=== PATIENT | male | born 1970 ===

== ENCOUNTER 2018-10-05 17:13 | Emergency (ER) | payer MEDICAID ==
[2018-10-05 17:33] VITALS: BP 163/82; PULSE 85; RESP 16; TEMP 98.3; O2SAT 98
--- NOTE | 2018-10-05 17:47 | C.PDOC ---
History Of Present Illness 48 y/o male presents to the ED complaining of lower back pain radiating to his left leg. Patient reports he was taking vicodin, prescribed by his primary doctor, which he ran out of today. Of note, he is visiting here from [place]. He denies any numbness, extremity weakness, paresthesias, dysuria, fever, or bowel/bladder incontinence. Time Seen by Provider: 10/05/18 17:38 Chief Complaint (Nursing): Back Pain History Per: Patient History/Exam Limitations: no limitations Onset/Duration Of Symptoms: Days Current Symptoms Are (Timing): Still Present Quality Of Discomfort: "Pain" Previous Symptoms: Back Pain Associated Symptoms: None Past Medical History Reviewed: Historical Data, Nursing Documentation, Vital Signs Vital Signs: Last Vital Signs Temp 98.3 F 10/05/18 17:30 Pulse 85 10/05/18 17:30 Resp 16 10/05/18 17:30 BP 163/82 H 10/05/18 17:30 Pulse Ox 98 10/05/18 17:30 Family History: States: Unknown Family Hx - Social History Hx Tobacco Use: No Hx Alcohol Use: No Hx Substance Use: No Review Of Systems Except As Marked, All Systems Reviewed And Found Negative. Constitutional: Negative for: Fever, Chills Gastrointestinal: Negative for: Abdominal Pain Genitourinary: Negative for: Dysuria, Frequency, Incontinence, Hematuria Musculoskeletal: Positive for: Back Pain Skin: Negative for: Rash Neurological: Negative for: Weakness, Numbness, Incoordination Physical Exam - Physical Exam Appears: Non-toxic, No Acute Distress Skin: Warm, Dry Head: Atraumatic, Normacephalic Eye(s): bilateral: Normal Inspection, PERRL, EOMI Neck: Normal ROM Chest: Symmetrical Respiratory: No Accessory Muscle Use, Other (Speaking in full sentences) Back: No CVA Tenderness, No Vertebral Tenderness, Paraspinal Tenderness (+ Paralumbar tenderness), Other (No skin changes or rash) Extremity: Bilateral: Atraumatic, Normal Color And Temperature, Normal ROM (x 4) Pulses: Left Dorsalis Pedis: Normal, Right Dorsalis Pedis: Normal Neurological/Psych: Oriented x3, Normal Motor, Normal Sensation Gait: Steady ED Course And Treatment O2 Sat by Pulse Oximetry: 98 (RA) Pulse Ox Interpretation: Normal Progress Note: Attempted to check prescription monitoring program for [place], however no results are loading. Will treat patient with 1 tab percocet PO and reassess. Disposition - Disposition Referrals: [facility] [Outside] Disposition: HOME/ ROUTINE Disposition Time: 18:33 Condition: STABLE Additional Instructions: Follow up with PMD/clinic within 1-2 days. Return to ED if feel worse. 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 - Scribe Statement The provider has reviewed the documentation as recorded by the Scribclement Gonzalez All medical record entries made by the Scribe were at my direction and perso tali dictated by me. I have reviewed the chart and agree that the record accurately reflects my personal performance of the history, physical exam, medical decision making, and the department course for this patient. I have also personally directed, reviewed, and agree with the discharge instructions and disposition.
[2018-10-05] MEDS ORDERED: Oxycodone/Acetaminophen 5/325 mg Tab PO STA (17:55)
[2018-10-05] MEDS ORDERED: Oxycodone/Acetaminophen 5/325 mg Tab ONE (18:18)
== END 2018-10-05 18:57 | disposition home or self-care (01) ==
LOC: C.ER 17:13
DX: M54.5 Low back pain (principal)

== ENCOUNTER 2018-10-17 18:40 | Emergency (ER) | payer MEDICAID, OTHER ==
[2018-10-17 18:55] VITALS: BP 145/88; PULSE 82; RESP 20; TEMP 98.4; O2SAT 96
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
== END 2018-10-17 20:25 | disposition home or self-care (01) ==
LOC: C.ER 18:40
DX: G89.21 Chronic pain due to trauma (principal)

== ENCOUNTER 2018-10-21 10:31 | Emergency (ER) | payer SELFPAY | END 2018-10-21 13:45 | disposition home or self-care (01) | LOC: C.ER 10:31 ==

== ENCOUNTER 2018-11-07 18:31 | Emergency (ER) | payer MEDICAID, OTHER ==
[2018-11-07 18:43] VITALS: BP 160/92; PULSE 80; RESP 20; TEMP 98.1; O2SAT 97
[2018-11-07] MEDS ORDERED: Lidocaine 5% Patch TD STA (18:56)
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
[2018-11-07] MEDS ORDERED: Lidocaine 5% Patch TD ONE (19:19)
== END 2018-11-07 19:37 | disposition left against medical advice (07) ==
LOC: C.ER 18:31
DX: M54.5 Low back pain (principal); W00.0XXA Fall on same level due to ice and snow, initial encounter; Y93.01 Activity, walking, marching and hiking; Y92.410 Unspecified street and highway as the place of occurrence of the external cause